=== PATIENT | female | born 1950 | race Caucasian/White ===

== ENCOUNTER → 2016-12-24 | Outpatient (REF) | payer MEDICARE | LOC: M LAB REF 12:55 | PROVIDERS: ATTEND Nurse Practitioner Family | DX: R39.15 Urgency of urination (principal) ==

== ENCOUNTER → 2017-01-28 | Outpatient (REF) | payer MEDICARE | LOC: M LAB REF 16:32 | PROVIDERS: ATTEND Nurse Practitioner Family | DX: Z12.4 Encounter for screening for malignant neoplasm of cervix (principal) ==

== ENCOUNTER → 2017-02-03 | Outpatient (CLI) | payer MEDICARE ==
--- NOTE | 2017-02-03 15:52 | REPMRS ---
Patient History The patient states she had a clinical breast exam in 12/2016. Patient is postmenopausal. No known family history of cancer. Digital Woman Screen Mammo: February 03, 2017 - Exam #: [id number] Bilateral CC and MLO view(s) were taken. Technologist: Deanna Singleton, Technologist FINDINGS: There are scattered fibroglandular densities. There is no evidence of dominant mass, architectural distortion, or clustered microcalcification typical of malignancy. ASSESSMENT: BI-RADS/ACR category 1 mammogram. Negative. Recommendation Routine screening mammogram of both breasts in 1 year (for women over age 40). This mammogram was interpreted with the aid of an FDA-approved computer-aided dectection system. Electronically Signed By: David Cabral MD 02/03/17 0726
== END ==
LOC: M WHC 13:40
PROVIDERS: ATTEND Nurse Practitioner Family
DX: Z12.31 Encounter for screening mammogram for malignant neoplasm of breast (principal)

== ENCOUNTER → 2017-02-19 | Outpatient (REF) | payer MEDICARE ==
[2017-02-19 19:06] LABS: MEAN CORPUSCULAR HGB CONC 32.6 g/dl (32.0-36.5); MEAN CORPUSCULAR VOLUME 91.9 fl (80.0-96.0); RED CELL DISTRIBUTION WIDTH 13.7 % (11.5-14.5); WHITE BLOOD COUNT 7.2 K/mm3 (4.0-10.0)
[2017-02-19 19:49] LABS: ALBUMIN/GLOBULIN RATIO 1.03 (1.00-1.93); ALKALINE PHOSPHATASE 76 U/L (45-117); ALT/SGPT 19 U/L (12-78); ANION GAP 6 MEQ/L (8-16); AST/SGOT 20 U/L (15-37); BILIRUBIN,TOTAL 0.5 MG/DL (0.2-1.0); BLOOD UREA NITROGEN 18 MG/DL (7-18); CALCIUM LEVEL 8.2 MG/DL (8.8-10.2); CARBON DIOXIDE LEVEL 30 MEQ/L (21-32); CHLORIDE LEVEL 102 MEQ/L (98-107); CREATININE FOR GFR 1.01 MG/DL (0.55-1.02); GLOMERULAR FILTRATION RATE 58.6 (>45); GLUCOSE, FASTING 103 MG/DL (80-110); POTASSIUM SERUM 4.4 MEQ/L (3.5-5.1); SODIUM LEVEL 138 MEQ/L (136-145); TOTAL PROTEIN 7.9 GM/DL (6.4-8.2)
[2017-02-23 00:06] LABS: Lyme Disease IgG Ab 18 kDa Ban Absent (.); Lyme Disease IgG Ab 23 kDa Ban Absent (.); Lyme Disease IgG Ab 28 kDa Ban Absent (.); Lyme Disease IgG Ab 30 kDa Ban Present (.); Lyme Disease IgG Ab 39 kDa Ban Absent (.); Lyme Disease IgG Ab 41 kDa Ban Absent (.); Lyme Disease IgG Ab 45 kDa Ban Absent (.); Lyme Disease IgG Ab 58 kDa Ban Absent (.); Lyme Disease IgG Ab 66 kDa Ban Absent (.); Lyme Disease IgG Ab 93 kDa Ban Absent (.); Lyme Disease IgG West Blot Int Negative (.); Lyme Disease IgG/IgM Antibodie <0.91 ISR (0.00-0.90); Lyme Disease IgM Ab 23 kDa Ban Present (.); Lyme Disease IgM Ab 39 kDa Ban Absent (.); Lyme Disease IgM Ab 41 kDa Ban Absent (.); Lyme Disease IgM Ab Quantitati 0.83 index (0.00-0.79); Lyme Disease IgM West Blot Int Negative (.); SJOGREN'S ANTI SS-A <0.2 AI (0.0-0.9); SJOGREN'S ANTI SS-B <0.2 AI (0.0-0.9)
== END ==
LOC: M LAB REF 16:47
PROVIDERS: ATTEND Nurse Practitioner Family
DX: R42 Dizziness and giddiness (principal); M19.90 Unspecified osteoarthritis, unspecified site; E66.09 Other obesity due to excess calories; Z13.0 Encounter for screening for diseases of the blood and blood-forming organs and certain disorders involving the immune mechanism; Z00.00 Encounter for general adult medical examination without abnormal findings

== ENCOUNTER → 2017-04-17 | Outpatient (REF) | payer MEDICARE, MEDICAID ==
[~2017-04-17] MED LIST: ASPI325T28 PO; LEVO137T2 PO
[2017-04-17 14:31] LABS: FREE T4 0.33 NG/DL (0.76-1.46)
== END ==
LOC: M LAB REF 13:53
PROVIDERS: ATTEND Nurse Practitioner Family
DX: E03.9 Hypothyroidism, unspecified (principal)

== ENCOUNTER 2017-05-06 13:56 | Emergency (ER) | payer MEDICAID, MEDICARE ==
[~2017-05-06] VITALS: Ht 160 cm; Wt 80.0 kg
[2017-05-06] MEDS ORDERED: LEVO137T2 PO (14:06)
[2017-05-06] MEDS ORDERED: ASPI325T28 PO (14:06)
[2017-05-06 14:51] LABS: BASO # 0.1 K/mm3 (0.0-0.2); EOS # 0.2 K/mm3 (0.0-0.50); EOS % 3.5 % (0.0-3.0); LARGE UNSTAINED CELL # 0.2 K/mm3 (0.0-0.4); LYMPH # 2.1 K/mm3 (1.5-4.5); LYMPH % 34.5 % (24.0-44.0); MEAN CORPUSCULAR HEMOGLOBIN 30.3 pg (27.0-33.0); MEAN CORPUSCULAR HGB CONC 34.9 g/dl (32.0-36.5); MONO # 0.4 K/mm3 (0.0-0.8); MONO % 6.4 % (0.0-5.0); NEUTROPHILS # 3.1 K/mm3 (1.8-7.7); NEUTROPHILS % 51.5 % (36.0-66.0); PLATELET COUNT, AUTOMATED 285 k/mm3 (150-450); RED CELL DISTRIBUTION WIDTH 14.2 % (11.5-14.5)
[2017-05-06 15:27] LABS: ALBUMIN 3.8 GM/DL (3.2-5.2); ALBUMIN/GLOBULIN RATIO 0.97 (1.00-1.93); ALKALINE PHOSPHATASE 81 U/L (45-117); ALT/SGPT 25 U/L (12-78); ANION GAP 8 MEQ/L (8-16); AST/SGOT 17 U/L (15-37); BILIRUBIN,DIRECT 0.1 MG/DL (0.0-0.2); BILIRUBIN,TOTAL 0.6 MG/DL (0.2-1.0); BLOOD UREA NITROGEN 12 MG/DL (7-18); CALCIUM LEVEL 8.6 MG/DL (8.8-10.2); CARBON DIOXIDE LEVEL 28 MEQ/L (21-32); CHLORIDE LEVEL 104 MEQ/L (98-107); CREATININE FOR GFR 0.65 MG/DL (0.55-1.02); GLOMERULAR FILTRATION RATE > 60.0 (>45); GLUCOSE, FASTING 89 MG/DL (80-110); POTASSIUM SERUM 4.3 MEQ/L (3.5-5.1); SODIUM LEVEL 140 MEQ/L (136-145); T UPTAKE 33 % (30-39); THYROXINE (T4) 10.9 UG/DL (4.5-12.0); TOTAL PROTEIN 7.7 GM/DL (6.4-8.2)
[2017-05-06] MEDS ORDERED: ASPIRIN 325 MG TAB PO ONE (16:00)
[2017-05-06 18:29] VITALS: BP 188/84
--- NOTE | 2017-05-06 21:23 | ECGEPIP ---
Stationary ECG Study [facility] - ED Test Date: 2017-05-06 Pat Name: JAKUB GAVIN Department: Room: - Gender: F Rubbish Collection Supervisor: af : 1950 Requested By: Silvia Collins Order Number: [id number] Reading MD: Silvia Collins Measurements Intervals [place] Rate: 59 P: 72 ID: 180 QRS: 5 QRSD: 79 T: 89 QT: 423 QTc: 421 Interpretive Statements SINUS BRADYCARDIA POSSIBLE RIGHT VENTRICULAR CONDUCTION DELAY SEPTAL MYOCARDIAL INFARCTION, PROBABLY OLD NO PRIOR FOR COMPARISON Electronically Signed On 05-06-2017 21:23:32 EDT by Silvia Collins
--- NOTE | 2017-05-07 07:38 | REP ---
Clinical: Chest pain . Comparison: 08/12/2005 . Findings: The mediastinum and cardiac silhouette are stable and within normal limits for portable technique. The lung rodriguez are clear without acute consolidation, effusion, or pneumothorax. Skeletal structures are intact. Impression: No acute cardiopulmonary process appreciated. Signed by Gio Burnett MD 05/06/2017 02:48 P
--- NOTE | 2017-05-08 18:19 | ECGEPIP ---
Stationary ECG Study [facility] - ED Test Date: 2017-05-06 Pat Name: JAKUB GAVIN Department: Room: - Gender: F Global Sales Director: PARTH : 1950 Requested By: Silvia Collins Order Number: [id number] Reading MD: Leandro Elliott Measurements Intervals [place] Rate: 54 P: 61 NM: 170 QRS: 1 QRSD: 90 T: 66 QT: 435 QTc: 414 Interpretive Statements SINUS BRADYCARDIA INC. RBBB SEPTAL MYOCARDIAL INFARCTION, PROBABLY OLD SIMILAR TO 05/06/17 Electronically Signed On 05-08-2017 18:19:42 EDT by Leandro Elliott
== END 2017-05-06 18:55 | disposition home or self-care (01) ==
LOC: M ED 13:56
DX: R07.9 Chest pain, unspecified (principal); R06.02 Shortness of breath; R94.31 Abnormal electrocardiogram [ECG] [EKG]; E07.9 Disorder of thyroid, unspecified; F17.200 Nicotine dependence, unspecified, uncomplicated; Z79.899 Other long term (current) drug therapy; Z79.82 Long term (current) use of aspirin

== ENCOUNTER → 2018-02-10 | Outpatient (CLI) | payer MEDICARE | LOC: M WHC 13:12 | DX: Z01.419 Encounter for gynecological examination (general) (routine) without abnormal findings (principal); Z12.31 Encounter for screening mammogram for malignant neoplasm of breast (principal); Z12.12 Encounter for screening for malignant neoplasm of rectum; Z79.82 Long term (current) use of aspirin; R30.0 Dysuria | CPT/HCPCS: 77067; 87086 ==

== ENCOUNTER → 2018-02-10 | Outpatient (REF) | payer MEDICARE | LOC: M SFHCWAGY 14:21 | DX: Z12.4 Encounter for screening for malignant neoplasm of cervix (principal); R30.0 Dysuria | CPT/HCPCS: 87086 ==

== ENCOUNTER → 2018-02-23 | Outpatient (CLI) | payer MEDICARE | LOC: M WHC 10:43 | DX: R10.2 Pelvic and perineal pain (principal) | CPT/HCPCS: 76830 ==

== ENCOUNTER → 2018-05-22 | Outpatient (REF) | payer MEDICARE ==
[2018-05-22 14:47] LABS: ALBUMIN 4.1 GM/DL (3.2-5.2); ALBUMIN/GLOBULIN RATIO 0.98 (1.00-1.93); ALKALINE PHOSPHATASE 78 U/L (45-117); ALT/SGPT 24 U/L (12-78); ANION GAP 7 MEQ/L (8-16); AST/SGOT 29 U/L (7-37); BILIRUBIN,TOTAL 0.4 MG/DL (0.2-1.0); BLOOD UREA NITROGEN 14 MG/DL (7-18); CALCIUM LEVEL 8.5 MG/DL (8.8-10.2); CARBON DIOXIDE LEVEL 31 MEQ/L (21-32); CHLORIDE LEVEL 100 MEQ/L (98-107); CHOLESTEROL LEVEL 300 MG/DL (<200); CREATININE FOR GFR 1.03 MG/DL (0.55-1.30); GLOMERULAR FILTRATION RATE 57.1 (>45); GLUCOSE, FASTING 107 MG/DL (70-100); HDL CHOLESTEROL 30 MG/DL (>40); NON-HDL-C 270 MG/DL; POTASSIUM SERUM 4.5 MEQ/L (3.5-5.1); SODIUM LEVEL 138 MEQ/L (136-145); TOTAL PROTEIN 8.3 GM/DL (6.4-8.2); TRIGLYCERIDES LEVEL 922 MG/DL (<150)
== END ==
LOC: M LAB REF 12:40
DX: E03.9 Hypothyroidism, unspecified (principal)
CPT/HCPCS: 84443

== ENCOUNTER → 2018-09-15 | Outpatient (REF) | payer MEDICARE ==
[~2018-09-15] MED LIST changes: +ASPI-222 PO; -ASPI325T28 PO
== END ==
LOC: M LAB REF 19:11
PROVIDERS: ATTEND Family Medicine Addiction Medicine
DX: E03.9 Hypothyroidism, unspecified (principal)

== ENCOUNTER → 2019-03-12 | Outpatient (REF) | payer MEDICARE ==
[2019-03-12 13:37] LABS: ALBUMIN 3.8 GM/DL (3.2-5.2); ALT/SGPT 33 U/L (12-78); BILIRUBIN,TOTAL 0.7 MG/DL (0.2-1.0); BLOOD UREA NITROGEN 14 MG/DL (7-18); CALCIUM LEVEL 8.6 MG/DL (8.8-10.2); CARBON DIOXIDE LEVEL 30 MEQ/L (21-32); CHLORIDE LEVEL 105 MEQ/L (98-107); CHOLESTEROL LEVEL 283 MG/DL (<200); CHOLESTEROL RISK RATIO 8.323 (<5); CREATININE FOR GFR 0.83 MG/DL (0.55-1.30); GLOMERULAR FILTRATION RATE > 60.0 (>45); GLUCOSE, FASTING 123 MG/DL (70-100); HDL CHOLESTEROL 34 MG/DL (>40); NON-HDL-C 249 MG/DL; POTASSIUM SERUM 4.6 MEQ/L (3.5-5.1); SODIUM LEVEL 141 MEQ/L (136-145); TOTAL PROTEIN 7.6 GM/DL (6.4-8.2); TRIGLYCERIDES LEVEL 651 MG/DL (<150)
== END ==
LOC: M LAB REF 12:24
PROVIDERS: ATTEND Family Medicine Addiction Medicine
DX: E03.9 Hypothyroidism, unspecified (principal)

== ENCOUNTER → 2019-03-19 | Outpatient (REF) | payer MEDICARE ==
[2019-03-19 19:09] LABS: HEMOGLOBIN A1c 6.2 %
[2019-03-19 19:16] LABS: FREE T4 1.08 NG/DL (0.76-1.46); THYROID STIMULATING HORMONE 5.3 uIU/ML (0.358-3.740)
== END ==
LOC: M LAB REF 18:35
PROVIDERS: ATTEND Nurse Practitioner Family
DX: E03.9 Hypothyroidism, unspecified (principal); E78.5 Hyperlipidemia, unspecified

== ENCOUNTER → 2019-04-23 | Outpatient (REF) | payer MEDICARE ==
[~2019-04-23] MED LIST changes: -ASPI-222 PO; +ASPI-527 PO
[2019-04-23 17:12] LABS: FREE T4 0.88 NG/DL (0.76-1.46); THYROID STIMULATING HORMONE 3.08 uIU/ML (0.358-3.740)
== END ==
LOC: M LAB REF 16:41
PROVIDERS: ATTEND Nurse Practitioner Family
DX: Z00.01 Encounter for general adult medical examination with abnormal findings (principal); E07.9 Disorder of thyroid, unspecified

== ENCOUNTER → 2019-05-14 | Outpatient (REF) | payer MEDICARE ==
[2019-05-14 18:29] LABS: ALBUMIN 4.3 GM/DL (3.2-5.2); ALT/SGPT 43 U/L (12-78); BILIRUBIN,TOTAL 0.5 MG/DL (0.2-1.0); BLOOD UREA NITROGEN 16 MG/DL (7-18); CALCIUM LEVEL 9.2 MG/DL (8.8-10.2); CARBON DIOXIDE LEVEL 29 MEQ/L (21-32); CHLORIDE LEVEL 104 MEQ/L (98-107); CHOLESTEROL LEVEL 286 MG/DL (<200); CHOLESTEROL RISK RATIO 7.526 (<5); CREATININE FOR GFR 0.85 MG/DL (0.55-1.30); FREE T4 0.26 NG/DL (0.76-1.46); GLOMERULAR FILTRATION RATE > 60.0 (>45); GLUCOSE, FASTING 95 MG/DL (70-100); HDL CHOLESTEROL 38 MG/DL (>40); NON-HDL-C 248 MG/DL; POTASSIUM SERUM 4.1 MEQ/L (3.5-5.1); SODIUM LEVEL 139 MEQ/L (136-145); TOTAL PROTEIN 7.8 GM/DL (6.4-8.2); TRIGLYCERIDES LEVEL 866 MG/DL (<150)
[2019-05-14 19:26] LABS: HEMOGLOBIN A1c 6.1 %
== END ==
LOC: M LAB REF 16:29
PROVIDERS: ATTEND Nurse Practitioner Family
DX: E78.5 Hyperlipidemia, unspecified (principal); R73.9 Hyperglycemia, unspecified; E03.9 Hypothyroidism, unspecified

== ENCOUNTER → 2019-07-02 | Outpatient (REF) | payer MEDICARE ==
[2019-07-02 17:11] LABS: FREE T4 0.28 NG/DL (0.76-1.46); THYROID STIMULATING HORMONE 54.8 uIU/ML (0.358-3.740)
== END ==
LOC: M LAB REF 16:18
PROVIDERS: ATTEND Nurse Practitioner Family
DX: E03.9 Hypothyroidism, unspecified (principal)

== ENCOUNTER → 2019-07-06 | Outpatient (REF) | payer MEDICARE ==
[2019-07-06 20:33] LABS: BASO # 0.2 10^3/uL (0.0-0.2); BASO % 1.7 % (0.0-1.0); EOS # 0.3 10^3/uL (0.0-0.5); EOS % 3.3 % (0.0-3.0); HEMATOCRIT 40.9 % (36.0-47.0); HEMOGLOBIN 13.6 g/dl (12.0-15.5); LYMPH # 3.5 10^3/uL (1.5-5.0); LYMPH % 37.5 % (24.0-44.0); MEAN CORPUSCULAR HEMOGLOBIN 30.6 pg (27.0-33.0); MEAN CORPUSCULAR HGB CONC 33.3 g/dl (32.0-36.5); MEAN CORPUSCULAR VOLUME 92.1 fl (80.0-96.0); MONO # 0.6 10^3/uL (0.0-0.8); MONO % 6.7 % (0.0-5.0); NEUTROPHILS # 4.8 10^3/uL (1.5-8.5); NEUTROPHILS % 50.6 % (36.0-66.0); PLATELET COUNT, AUTOMATED 270 10^3/uL (150-450); RED BLOOD COUNT 4.44 10^6/uL (4.00-5.40); WHITE BLOOD COUNT 9.4 10^3/uL (4.0-10.0)
[2019-07-06 20:36] LABS: ALBUMIN 4.3 GM/DL (3.2-5.2); ALT/SGPT 38 U/L (12-78); BILIRUBIN,TOTAL 0.7 MG/DL (0.2-1.0); BLOOD UREA NITROGEN 12 MG/DL (7-18); C REACTIVE PROTEIN QUANTITATIV 0.36 MG/DL (0.00-0.30); CARBON DIOXIDE LEVEL 31 MEQ/L (21-32); CHLORIDE LEVEL 101 MEQ/L (98-107); COMPLEMENT C3 129 MG/DL (90-180); CPK CREATINE PHOSPHOKINASE 720 U/L (26-192); CREATININE FOR GFR 0.96 MG/DL (0.55-1.30); GLOMERULAR FILTRATION RATE > 60.0 (>45); GLUCOSE, FASTING 78 MG/DL (70-100); MAGNESIUM LEVEL 2.3 MG/DL (1.8-2.4); POTASSIUM SERUM 4.5 MEQ/L (3.5-5.1); RHEUMATOID FACTOR QUANT < 10.0 IU/ML (<15.0); SODIUM LEVEL 136 MEQ/L (136-145); TOTAL PROTEIN 8.7 GM/DL (6.4-8.2); URIC ACID 6.1 MG/DL (2.6-6.0)
[2019-07-06 20:44] LABS: FOLATE 10.7 NG/ML; TOTAL 25(OH) VITAMIN D 11.8 NG/ML (30.0-100.0); VITAMIN B12 LEVEL 518 PG/ML
[2019-07-06 21:05] LABS: ERYTHROCYTE SEDIMENTATION RATE 18 mm/hr (0-30)
== END ==
LOC: M LAB REF 19:17
PROVIDERS: ATTEND Nurse Practitioner Family
DX: M25.50 Pain in unspecified joint (principal)

== ENCOUNTER 2019-09-24 19:00 | Emergency (ER) | payer MEDICARE ==
[~2019-09-24] VITALS: Ht 160 cm; Wt 78.6 kg
[2019-09-24] MEDS ORDERED: AMOX875T2 PO (19:08)
[2019-09-24] MEDS ORDERED: NS 1,000 ML IV ONE (19:30)
[2019-09-24] MEDS ORDERED: ONDANSETRON 4MG/2ML VIAL (J2405) IV ONE (19:30)
[2019-09-24 20:04] LABS: BASO # 0.1 10^3/uL (0.0-0.2); BASO % 0.9 % (0.0-1.0); EOS # 0.2 10^3/uL (0.0-0.5); EOS % 1.9 % (0.0-3.0); HEMATOCRIT 43.1 % (36.0-47.0); HEMOGLOBIN 13.9 g/dl (12.0-15.5); LYMPH # 0.7 10^3/uL (1.5-5.0); LYMPH % 6.4 % (24.0-44.0); MEAN CORPUSCULAR HEMOGLOBIN 29.7 pg (27.0-33.0); MEAN CORPUSCULAR HGB CONC 32.3 g/dl (32.0-36.5); MEAN CORPUSCULAR VOLUME 92.1 fl (80.0-96.0); MONO # 0.9 10^3/uL (0.0-0.8); MONO % 8.5 % (0.0-5.0); NEUTROPHILS # 8.8 10^3/uL (1.5-8.5); NEUTROPHILS % 81.9 % (36.0-66.0); PLATELET COUNT, AUTOMATED 252 10^3/uL (150-450); RED BLOOD COUNT 4.68 10^6/uL (4.00-5.40); WHITE BLOOD COUNT 10.8 10^3/uL (4.0-10.0)
[2019-09-24] MEDS ORDERED: ISOVUE-370 76% 100ML VIAL (Q9967) As Ordered ONE (20:08)
[2019-09-24 20:27] LABS: ALBUMIN 4.2 GM/DL (3.2-5.2); BILIRUBIN,DIRECT 0.2 MG/DL (0.0-0.2); BILIRUBIN,TOTAL 0.7 MG/DL (0.2-1.0)
--- NOTE | 2019-09-24 20:39 | ECGEPIP ---
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
--- NOTE | 2019-09-24 20:46 | REPVR ---
PROCEDURE INFORMATION: Exam: CT Abdomen And Pelvis With Contrast Exam date and time: 09/24/2019 8:12 PM Age: 69 years old Clinical indication: Abdominal pain; Epigastric; Additional info: Diarrhea/upper abd pain TECHNIQUE: Imaging protocol: Computed tomography of the abdomen and pelvis with intravenous contrast. Radiation optimization: All CT scans at this facility use at least one of these dose optimization techniques: automated exposure control; mA and/or kV adjustment per patient size (includes targeted exams where dose is matched to clinical indication); or iterative reconstruction. Contrast material: ISOVUE 370; Contrast volume: 100 ml; Contrast route: IV; COMPARISON: PELVIS NON-OB COMPLETE US 02/23/2018 11:10 AM FINDINGS: Mediastinum: A small hiatal hernia is present. Liver: There is a diffuse decrease in hepatic parenchymal density, consistent with fatty infiltration. Multiple small liver cysts measure under 1 cm. Gallbladder and bile ducts: Normal. No calcified stones. No ductal dilation. Pancreas: Normal. No ductal dilation. Spleen: Normal. No splenomegaly. Adrenals: Normal. No mass. Kidneys and ureters: Bilateral renal cysts measuring up to 1.7 cm. Stomach and bowel: Mild diverticulosis is present in the distal left colon. No diverticulitis. There is increased feces throughout the colon consistent with constipation. Appendix: No evidence of appendicitis. Intraperitoneal space: Unremarkable. No free air. No significant fluid collection. Vasculature: The aorta demonstrates moderate atherosclerotic calcification. Moderate stenosis at the origin of the left common iliac artery. Lymph nodes: Unremarkable. No enlarged lymph nodes. Bladder: Unremarkable as visualized. Reproductive: Unremarkable as visualized. Bones/joints: Severe central spinal stenosis L2-L3, L3-L4, and L4-L5 secondary to mild degenerative changes and congenitally short pedicles. Left-sided spondylolysis at L5. No spondylolisthesis. Soft tissues: Unremarkable. IMPRESSION: 1. There is a diffuse decrease in hepatic parenchymal density, consistent with fatty infiltration. Small hepatic cysts. 2. A small hiatal hernia is present. 3. Mild diverticulosis is present in the distal left colon. No diverticulitis. 4. There is increased feces throughout the colon consistent with constipation. Electronically signed by: Aman Parr On 09/24/2019 20:46:37 PM
[2019-09-24 21:24] VITALS: BP 151/68
[2019-09-24] MEDS ORDERED: ONDA4TAB6 PO (21:28)
[2019-09-24] MEDS ORDERED: MIRA3350 PO (21:30)
[2019-09-24] MEDS ORDERED: MAGN296S16 PO (21:30)
--- NOTE | 2019-09-25 07:22 | REP ---
CHEST, PA AND LATERAL: 09/24/2019. Comparison: 08/12/2005. Clinical history: Abdominal pain. Findings: The lung rodriguez are adequately inflated. Heart size mildly enlarged. There is no vascular redistribution or edema. Some minor basilar fibrotic change. Some slight soft tissue prominence at the right cardiophrenic angle is again seen suggesting epicardial fat pad and unchanged. No effusion. No dense consolidation or mass. Aorta is mildly tortuous but normal for age and unchanged. Airway intact bony thorax with small marginal osteophytes but no compression deformity. Impression: 1. Mild cardiomegaly without vascular redistribution or edema. 2. No effusion or definite acute infiltrate. Soft tissue density at the right cardiophrenic angle, unchanged for 14 years and consistent with epicardial fat pad. Electronically Signed by Harjinder Nichols MD 09/25/2019 07:49 P
== END 2019-09-24 21:53 | disposition home or self-care (01) ==
LOC: M ED 19:00
DX: K59.00 Constipation, unspecified (principal); R11.2 Nausea with vomiting, unspecified; I45.19 Other right bundle-branch block; R05 Cough; R09.81 Nasal congestion; R06.02 Shortness of breath; E03.9 Hypothyroidism, unspecified; F17.200 Nicotine dependence, unspecified, uncomplicated; Q44.6 Cystic disease of liver; K44.9 Diaphragmatic hernia without obstruction or gangrene; K57.30 Diverticulosis of large intestine without perforation or abscess without bleeding; Z79.899 Other long term (current) drug therapy
CPT/HCPCS: 71046; 74177; 80047; 80076; 81001; 83690; 85025; 93005; 96374; 99284; J2405; Q9967

== ENCOUNTER → 2019-11-19 | Outpatient (REF) | payer MEDICARE ==
[~2019-11-19] MED LIST changes: +AMOX875T2 PO; +MAGN296S16 PO; +MIRA3350 PO; +ONDA4TAB6 PO
[2019-11-19 17:35] LABS: BASO # 0.1 10^3/uL (0.0-0.2); BASO % 1.5 % (0.0-1.0); EOS # 0.4 10^3/uL (0.0-0.5); EOS % 6.8 % (0.0-3.0); HEMATOCRIT 39.3 % (36.0-47.0); HEMOGLOBIN 13.3 g/dl (12.0-15.5); LYMPH # 1.7 10^3/uL (1.5-5.0); LYMPH % 32.2 % (24.0-44.0); MEAN CORPUSCULAR HEMOGLOBIN 31.2 pg (27.0-33.0); MEAN CORPUSCULAR HGB CONC 33.8 g/dl (32.0-36.5); MEAN CORPUSCULAR VOLUME 92.3 fl (80.0-96.0); MONO # 0.7 10^3/uL (0.0-0.8); MONO % 12.4 % (0.0-5.0); NEUTROPHILS # 2.5 10^3/uL (1.5-8.5); NEUTROPHILS % 46.5 % (36.0-66.0); PLATELET COUNT, AUTOMATED 267 10^3/uL (150-450); RED BLOOD COUNT 4.26 10^6/uL (4.00-5.40); WHITE BLOOD COUNT 5.4 10^3/uL (4.0-10.0)
[2019-11-19 17:48] LABS: ALBUMIN 3.8 GM/DL (3.2-5.2); ALT/SGPT 39 U/L (12-78); BILIRUBIN,TOTAL 0.4 MG/DL (0.2-1.0); BLOOD UREA NITROGEN 13 MG/DL (7-18); CARBON DIOXIDE LEVEL 28 MEQ/L (21-32); CHLORIDE LEVEL 106 MEQ/L (98-107); CREATININE FOR GFR 0.79 MG/DL (0.55-1.30); FREE T4 1.28 NG/DL (0.76-1.46); GLOMERULAR FILTRATION RATE > 60.0 (>45); GLUCOSE, FASTING 150 MG/DL (70-100); POTASSIUM SERUM 3.9 MEQ/L (3.5-5.1); SODIUM LEVEL 139 MEQ/L (136-145); TOTAL PROTEIN 7.6 GM/DL (6.4-8.2)
[2019-11-19 17:56] LABS: HEMOGLOBIN A1c 6.2 %
== END ==
LOC: M LAB REF 17:10
PROVIDERS: ATTEND Family Medicine
DX: I10 Essential (primary) hypertension (principal); Z79.899 Other long term (current) drug therapy